=== PATIENT | female | born 1985 | race Caucasian/White ===

== ENCOUNTER → 2020-08-17 | Outpatient (CLI) | payer OTHER | END | disposition home or self-care (01) | LOC: RAD 09:06 | PROVIDERS: ATTEND Registered Nurse | DX: E28.2 Polycystic ovarian syndrome (principal); N83.01 Follicular cyst of right ovary; N83.02 Follicular cyst of left ovary; N85.4 Malposition of uterus | CPT/HCPCS: 76856 ==